=== PATIENT | female | born 1945 | race Caucasian/White ===

== ENCOUNTER 2024-01-19 07:20 | Inpatient (IN) | payer MEDICARE, OTHER ==
[~2024-01-19] VITALS: Ht 167.6 cm; Wt 103.1 kg
[~2024-01-19 07:20] MED LIST: ANESTHESIA TRAY IN PYXIS 1 EA TRAY MC ONE; BUPIVACAINE 0.25% 75 MG/30 ML VIAL ONE; BUPIVACAINE 0.5 % PF 150 MG/30 ML VIAL ONE; FAMOTIDINE/PF INJ 20 MG/2 ML VIAL IV ONE; FENTANYL PF 100MCG/2ML AMPUL ONE; MIDAZOLAM HCL 2 MG/2ML VIAL ONE; ROCURONIUM BROMIDE 50 MG/5 ML ONE
[2024-01-19] MEDS ORDERED: TRANEXAMIC ACID 1,000 MG/10 ML VIAL ONE (08:16)
[2024-01-19 10:00] VITALS: BP 139/67; TEMP 98.8; O2SAT 95
[2024-01-19 10:15] VITALS: BP 138/84; TEMP 97.6; O2SAT 94
[2024-01-19 10:30] VITALS: BP 139/78; TEMP 97.8; O2SAT 95
[2024-01-19 11:00] VITALS: BP 133/72; TEMP 97.6; O2SAT 95
[2024-01-19] MEDS ORDERED: AMLO5TAB4 PO (11:08)
[2024-01-19] MEDS ORDERED: ATOR40TA PO (11:08)
[2024-01-19] MEDS ORDERED: OXYC5TAB3 PO (11:08)
[2024-01-19] MEDS ORDERED: MELO-105 PO (11:08)
[2024-01-19] MEDS ORDERED: PANT20TA2 PO (11:08)
[2024-01-19] MEDS ORDERED: METF-441 PO (11:08)
[2024-01-19] MEDS: MORPHINE SULFATE INJ 2 MG/ML DISP.SYRIN IV ONE (11:33)
[2024-01-19] MEDS ORDERED: hydrALAZINE HCL IV 20 MG VIAL IV PRN (13:00)
[2024-01-19] MEDS ORDERED: oxyCODONE IR immediate release 5 MG TABLET PO PRN (13:00)
[2024-01-19] MEDS ORDERED: DEXTROSE 50%-WATER 50 ML DISP.SYRIN IV PRN (13:00)
[2024-01-19] MEDS ORDERED: ONDANSETRON HCL/PF 4 MG/2 ML VIAL IVP PRN (13:00)
[2024-01-19 16:00] VITALS: BP 123/63; TEMP 98.3; O2SAT 93
[2024-01-19] MEDS: CEFAZOLIN 2 GM in IV D5W 100 ML IV SCH (16:41)
[2024-01-19] MEDS: BLOOD SUGAR DIAGNOSTIC 1 EACH STRIP IN SCH (17:57)
[2024-01-19] MEDS: INSULIN REGULAR, HUMAN 100 UNIT/ML 3 ML VIAL SQ PRN (17:58)
[2024-01-19 20:00] VITALS: BP 117/60; TEMP 99.1; O2SAT 93
[2024-01-20 06:35] LABS: BASOPHILS % (AUTO) 0.3 % (0.0-2.0); EOSINOPHILS # (AUTO) 0.1 K/uL (0.0-0.7); EOSINOPHILS % (AUTO) 0.9 % (0.0-6.0); HEMATOCRIT 34 % (33-45); HEMOGLOBIN 10.8 g/dL (11.5-14.8); LYMPHOCYTES # (AUTO) 2.6 K/uL (0.8-4.8); MEAN CORPUSCULAR HEMOGLOBIN 22 PG (26.0-33.0); MEAN CORPUSCULAR HGB CONC 32 g/dl (31.0-36.0); MEAN CORPUSCULAR VOLUME 69 fL (82-100); MONOCYTES # (AUTO) 0.7 K/uL (0.1-1.30); MONOCYTES % (AUTO) 7.6 % (2.0-12.0); NEUTROPHILS # (AUTO) 6.2 K/uL (1.8-8.9); NEUTROPHILS % (AUTO) 64.2 % (43.0-81.0); PLATELET COUNT (AUTO) 298 K/uL (150-450); RED BLOOD CELL COUNT(AUTO) 4.87 MIL/uL (4.0-5.2); RED CELL DISTRIBUTION WIDTH 15.8 % (11.5-15.0); WHITE BLOOD COUNT (AUTO) 9.7 K/uL (4.3-11.0)
[2024-01-20 07:00] VITALS: BP 135/73; TEMP 98.4; O2SAT 94
[2024-01-20 07:09] LABS: ALANINE AMINOTRANSFERASE 14 U/L (12-78); ALBUMIN 2.8 g/dL (3.4-5.0); ALKALINE PHOSPHATASE 54 U/L (46-116); ASPARTATE AMINOTRANSFERASE 11 U/L (15-37); BILIRUBIN,TOTAL 0.3 mg/dL (0.2-1.0); CALCIUM, SERUM 8.2 mg/dL (8.5-10.1); CARBON DIOXIDE 29 mmol/L (21-32); CHLORIDE 104 mmol/L (98-107); CREATININE 0.8 mg/dL (0.6-1.3); GLUCOSE 148 mg/dL (74-106); PHOSPHORUS 3.7 mg/dL (2.5-4.9); POTASSIUM 3.5 mmol/L (3.5-5.1); SODIUM SERUM 139 mmol/L (136-145); TOTAL PROTEIN, SERUM 7.3 g/dL (6.4-8.2); UREA NITROGEN, BLOOD 20 mg/dL (7-18)
[2024-01-20] MEDS: ATORVASTATIN 40 MG TABLET PO SCH (08:25)
[2024-01-20] MEDS: PANTOPRAZOLE 40 MG TABLET.DR PO SCH (08:25)
[2024-01-20] MEDS: AMLODIPINE BESYLATE 5 MG TABLET PO SCH (08:26)
[2024-01-20] MEDS: VANCOMYCIN 1.5 GM in IV D5W 500 ML IV ONE (09:28)
[2024-01-20] MEDS: ACETAMINOPHEN 325 MG TABLET PO PRN (09:43)
[2024-01-20] MEDS: CEFEPIME 2 GM in IV D5W 100 ML IV SCH (11:24)
[2024-01-20 16:00] VITALS: BP 124/77; TEMP 98.2; O2SAT 94
[2024-01-20 20:00] VITALS: BP 121/62; TEMP 98.8; O2SAT 93
[2024-01-20] MEDS: VANCOMYCIN 750 MG in IV D5W 250 ML IV SCH (21:07)
[2024-01-20] MEDS: HEPARIN SODIUM, PORCINE 5000 UNITS/1 ML VIAL SQ SCH (21:13)
[2024-01-20] MEDS: MORPHINE SULFATE INJ 2 MG/ML DISP.SYRIN IV PRN (21:38)
[2024-01-21 06:51] LABS: CALCIUM, SERUM 7.9 mg/dL (8.5-10.1); CARBON DIOXIDE 26 mmol/L (21-32); CHLORIDE 103 mmol/L (98-107); CREATININE 0.9 mg/dL (0.6-1.3); GLUCOSE 138 mg/dL (74-106); POTASSIUM 3.6 mmol/L (3.5-5.1); SODIUM SERUM 138 mmol/L (136-145); UREA NITROGEN, BLOOD 20 mg/dL (7-18)
[2024-01-21 08:00] VITALS: BP 131/75; TEMP 98.8; O2SAT 93
[2024-01-21] MEDS ORDERED: LEVO750T46 PO (08:50)
[2024-01-21] MEDS ORDERED: DOXY100C2 PO (08:50)
[2024-01-21] MEDS ORDERED: CEFE2FRO IV (12:03)
[2024-01-21] MEDS ORDERED: VANC750F2 IV (12:03)
[2024-01-21 16:00] VITALS: BP 127/72; TEMP 98.8; O2SAT 97
[2024-01-21 20:00] VITALS: BP 135/66; TEMP 98.1; O2SAT 93
[2024-01-22 08:00] VITALS: BP 125/75; TEMP 98.2; O2SAT 94
[2024-01-22] MEDS: VANCOMYCIN 1 GM in IV D5W 250ml IV SCH (08:27)
[2024-01-22 08:34] LABS: CALCIUM, SERUM 8.4 mg/dL (8.5-10.1); CREATININE 0.7 mg/dL (0.6-1.3); POTASSIUM 3.5 mmol/L (3.5-5.1)
[2024-01-22 16:00] VITALS: BP 132/74; TEMP 99.3; O2SAT 97
[2024-01-22] MEDS: CEFTRIAXONE 1 G in IV D5W 50 ML IV SCH (19:11)
[2024-01-22 20:00] VITALS: BP 133/77; TEMP 98.2; O2SAT 98
== END 2024-01-23 | disposition home health service (06) | DRG 497 ==
LOC: DS 07:20 → MED 10:24
PROVIDERS: ADMIT Internal Medicine; ATTEND Internal Medicine
PROC: 0QPH04Z Removal of Internal Fixation Device from Left Tibia, Open Approach (ICD-10-PCS; principal; 2024-01-19)
PROC: 02HV33Z Insertion of Infusion Device into Superior Vena Cava, Percutaneous Approach (ICD-10-PCS; 2024-01-21)
PROC: B548ZZA Ultrasonography of Superior Vena Cava, Guidance (ICD-10-PCS; 2024-01-21)
DX: T84.623A Infection and inflammatory reaction due to internal fixation device of left tibia, initial encounter (principal); D64.9 Anemia, unspecified; E11.9 Type 2 diabetes mellitus without complications; I10 Essential (primary) hypertension; E78.5 Hyperlipidemia, unspecified; Y83.1 Surgical operation with implant of artificial internal device as the cause of abnormal reaction of the patient, or of later complication, without mention of misadventure at the time of the procedure; I25.10 Atherosclerotic heart disease of native coronary artery without angina pectoris; Y92.009 Unspecified place in unspecified non-institutional (private) residence as the place of occurrence of the external cause
CPT/HCPCS: 36415; 36569; 71045-TC; 80048-TC; 80053-TC; 80202-TC; 82962-TC; 83735-TC; 84100-TC; 85025-TC; 87081-TC; 88300-TC; 88305-TC; 97110-TC; 97112-TC; 97116-TC; 97530-TC; 97535-TC; A4223; A6402; G0378; J0690; J0692; J0696; J1100; J1644; J1815; J2250; J2270; J2405; J2704; J2765; J3010; J3370; J3371; J3490; J7030; J7050; J7060